=== PATIENT | female | born 1970 | race Caucasian/White ===

== ENCOUNTER → 2017-10-13 | Outpatient (CLI) | payer BC | LOC: MC.RAD 14:35 | DX: N63.10 Unspecified lump in the right breast, unspecified quadrant (principal) ==

== ENCOUNTER → 2018-10-20 | Outpatient (CLI) | payer BC | LOC: MC.RAD 16:11 | DX: Z12.31 Encounter for screening mammogram for malignant neoplasm of breast (principal) ==

== ENCOUNTER → 2019-09-22 | Outpatient (CLI) | payer BC | LOC: COL.RAD 07:17 | DX: E04.1 Nontoxic single thyroid nodule (principal) ==

== ENCOUNTER → 2019-10-30 | Outpatient (CLI) | payer BC | LOC: MC.RAD 11:14 | DX: Z12.31 Encounter for screening mammogram for malignant neoplasm of breast (principal) ==

== ENCOUNTER → 2020-12-30 | Outpatient (CLI) | payer BC | LOC: MC.RAD 14:42 | DX: Z12.31 Encounter for screening mammogram for malignant neoplasm of breast (principal); N63.10 Unspecified lump in the right breast, unspecified quadrant ==

== ENCOUNTER → 2021-01-02 | Outpatient (CLI) | payer BC | LOC: MC.RAD 07:40 | DX: N63.10 Unspecified lump in the right breast, unspecified quadrant (principal) ==

== ENCOUNTER → 2021-01-08 | Outpatient (CLI) | payer BC | LOC: MC.RAD 07:52 | DX: N60.01 Solitary cyst of right breast (principal); N60.81 Other benign mammary dysplasias of right breast; Z98.82 Breast implant status | CPT/HCPCS: A4648 ==

== ENCOUNTER → 2022-01-06 | Outpatient (CLI) | payer BC | LOC: MC.RAD 15:23 | DX: Z12.31 Encounter for screening mammogram for malignant neoplasm of breast (principal) ==

== ENCOUNTER → 2022-02-19 | Outpatient (CLI) | payer BC | LOC: COL.RAD 07:52 | DX: R09.89 Other specified symptoms and signs involving the circulatory and respiratory systems (principal) | CPT/HCPCS: Q9967 ==

== ENCOUNTER → 2022-03-03 | Outpatient (CLI) | payer BC | LOC: COL.RAD 15:00 | DX: E04.2 Nontoxic multinodular goiter (principal) ==

== ENCOUNTER → 2022-03-05 | Outpatient (CLI) | payer BC | LOC: COL.RAD 14:44 | DX: R91.8 Other nonspecific abnormal finding of lung field (principal); K76.9 Liver disease, unspecified | CPT/HCPCS: Q9967 ==

== ENCOUNTER → 2022-03-25 | Outpatient (CLI) | payer BC | LOC: COL.RAD 07:44 | DX: K76.9 Liver disease, unspecified (principal) | CPT/HCPCS: A9575 ==

== ENCOUNTER → 2022-12-24 | Outpatient (CLI) | payer BC | LOC: COL.RAD 07:01 | DX: A31.0 Pulmonary mycobacterial infection (principal) | CPT/HCPCS: Q9967 ==